=== PATIENT | female | born 1970 | race Caucasian/White ===

== ENCOUNTER 2021-09-29 13:52 | Emergency (ER) | payer MEDICARE, OTHER ==
[2021-09-29 15:17] LABS: BASOPHIL 0.4 % (0-2); EOSINOPHIL 4.8 % (0-5); HCT 38.2 % (37.0-47.0); HGB 12.3 g/dl (12.5-16.0); LYMPHOCYTE 21.5 % (15-48); MCH 27.2 pg (25.0-31.0); MCHC 32.2 g/dL (32.0-36.0); MCV 84.5 fL (78.0-100.0); MONOCYTE 7.9 % (0-12); MPV 10.1 fL (6.0-9.5); NEUTROPHIL 65.1 % (41-80); NRBC 0; PLT 233 K/uL (150-400); RBC 4.52 M/uL (4.20-5.40); WBC 6.9 K/uL (4.0-10.5)
[2021-09-29 15:59] LABS: BUN/CREAT RATIO (CALC) 8.5 RATIO; CREATININE 0.94 mg/dL (0.51-0.95); POTASSIUM 4.1 mmol/L (3.5-5.1)
[2021-09-29] MEDS ORDERED: VENTOLIN HFA IN18 GM INH (16:38)
== END 2021-09-29 16:53 | disposition home or self-care (01) ==
LOC: FER 13:52
PROVIDERS: Nurse Practitioner Family
DX: U07.1 COVID-19 (principal); I10 Essential (primary) hypertension; E11.9 Type 2 diabetes mellitus without complications; Z23 Encounter for immunization; Z88.0 Allergy status to penicillin; Z88.2 Allergy status to sulfonamides
CPT/HCPCS: 36415; 80048; 85025; M0245; Q0245